=== PATIENT | female | born 1980 | race American Indian/Alaskan Native ===

== ENCOUNTER 2017-01-04 03:00 | Emergency (ER) | payer MEDICAID ==
[2017-01-04 03:22] VITALS: BP 138/84
[2017-01-04 03:50] LABS: Basophils % (Auto) 0.4 % (0.0-1.8); Eosinophils % (Auto) 1.1 % (0.0-4.3); Hematocrit 34.1 % (30.3-42.9); Hemoglobin 11.2 gm/dl (10.1-14.3); Mean Corpuscular HGB Conc 33 % (30-34); Mean Corpuscular Volume 74 fl (79-97); Platelet Count 270 K/mm3 (140-440); Red Blood Count 4.61 M/mm3 (3.65-5.03); Red Cell Distribution Width 16.4 % (13.2-15.2); White Blood Count 4.8 K/mm3 (4.5-11.0)
[2017-01-04 03:52] LABS: Alanine Aminotransferase 7 units/L (7-56); Albumin 3.7 g/dL (3.9-5); Alkaline Phosphatase 55 units/L (35-129); Anion Gap 18 mmol/L; Blood Urea Nitrogen 6 mg/dL (7-17); Carbon Dioxide 25 mmol/L (22-30); Chloride 100.5 mmol/L (98-107); Glucose 88 mg/dL (65-100); Lipase 26 units/L (13-60); Potassium 3.2 mmol/L (3.6-5.0); Sodium 140 mmol/L (137-145); Total Protein 7.5 g/dL (6.3-8.2)
[2017-01-04 03:54] LABS: Mean Corpuscular Hemoglobin 24 pg (28-32)
[2017-01-04 04:00] LABS: INR 1.02 (0.87-1.13)
[2017-01-04 04:01] LABS: Partial Thromboplastin Time 30.5 Sec. (24.2-36.6)
[2017-01-04 05:08] LABS: Bilirubin,Urine NEG (Negative); Blood,Urine SM (Negative); Ketones,Urine TR mg/dL (Negative); Leukocyte Esterase,Urine NEG (Negative); Mucus,Urine FEW /HPF; Nitrite,Urine NEG (Negative)
== END 2017-01-04 05:41 | disposition left against medical advice (07) ==
LOC: ED 03:00
DX: K21.9 Gastro-esophageal reflux disease without esophagitis (principal); Z53.21 Procedure and treatment not carried out due to patient leaving prior to being seen by health care provider
CPT/HCPCS: 36415; 80053; 81001; 83690; 84484; 85025; 85610; 85730; 93005; 93010

== ENCOUNTER 2017-01-13 22:37 | Emergency (ER) | payer MEDICAID ==
[2017-01-14 00:58] LABS: Basophils % (Auto) 0.5 % (0.0-1.8); Eosinophils % (Auto) 1.5 % (0.0-4.3); Hematocrit 36.7 % (30.3-42.9); Hemoglobin 11.7 gm/dl (10.1-14.3); Mean Corpuscular HGB Conc 32 % (30-34); Mean Corpuscular Volume 75 fl (79-97); Platelet Count 243 K/mm3 (140-440); Red Blood Count 4.89 M/mm3 (3.65-5.03); Red Cell Distribution Width 16.3 % (13.2-15.2); White Blood Count 5.1 K/mm3 (4.5-11.0)
[2017-01-14 00:59] LABS: Mean Corpuscular Hemoglobin 24 pg (28-32)
[2017-01-14 01:13] LABS: Anion Gap 21 mmol/L; Blood Urea Nitrogen 9 mg/dL (7-17); Calcium 9.2 mg/dL (8.4-10.2); Carbon Dioxide 23 mmol/L (22-30); Chloride 100.8 mmol/L (98-107); Glucose 83 mg/dL (65-100); Potassium 3.5 mmol/L (3.6-5.0); Sodium 141 mmol/L (137-145)
[2017-01-14 02:31] LABS: Bilirubin,Urine NEG (Negative); Blood,Urine SM (Negative); Ketones,Urine 80 mg/dL (Negative); Leukocyte Esterase,Urine NEG (Negative); Mucus,Urine 3+ /HPF; Nitrite,Urine NEG (Negative)
[2017-01-14] MEDS ORDERED: NACL 0.9% 1000 ML 1,000 ML IV ONE ×2 (06:15→06:16)
[2017-01-14] MEDS ORDERED: LIDOCAINE VISCOUS 2% PO ONE (06:16)
[2017-01-14] MEDS ORDERED: ALUM-MAG HYDROX-SIMETH 200-200-20MG/5ML PO ONE (06:16)
--- NOTE | 2017-01-14 06:21 | Emergency Department Report ---
HPI - General Chief Complaint: Nausea/Vomiting/Diarrhea Time Seen by Provider: 01/14/17 06:02 - HPI HPI: This is a 37 year-old female presents to the emergency department with complaint of inability to eat and drink for the past 3 weeks or so. The patient has a history of acid reflux and ulcers and was placed on Nexium by her PCP, Dr. Del Rosario. This particular first but she felt that the Nexium was causing anxiety problems. She then switched Pepcid which helped at first but the patient develops a fullness sensation in her abdomen upon eating or drinking, even small amounts, and sometimes patient will have nausea and vomiting. It is gone to the point where the patient is very anxious about eating or drinking because she does not want to have the fullness sensation or any abdominal discomfort. Sometimes she is able to keep down a very small amount of liquid. She has not seen a singer songwriter. She has a history of anxiety that worsened with these medications. She has a past surgical history of tubal ligation and . No recent travel or sick contacts at home. She is a smoker but denies any alcohol or illicit drug use or abuse. ED Past Medical Hx - Past Medical History Hx GERD: Yes Hx Psychiatric Treatment: Yes (anxiety) - Surgical History Past Surgical History?: Yes Additional Surgical History: tubal ligation, - Social History Smoking Status: Current Every Day Smoker Substance Use Type: None - Medications Home Medications: Home Medications Medication Instructions Recorded Confirmed Last Taken Type Acetaminophen/Codeine 1 tab PO Q8H PRN 01/24/16 01/24/16 01/23/16 History [Acetaminophen-Codeine #3 TAB] Acetaminophen/Codeine [Tylenol #3] 1 tab PO Q6H PRN #10 tab 01/24/16 Unknown Rx Amoxicillin [Trimox] 500 mg PO TID 01/24/16 01/24/16 01/23/16 History Ibuprofen [Motrin 800 MG tab] 800 mg PO BID 01/24/16 01/24/16 01/23/16 History Ondansetron [Zofran TAB] 4 mg PO Q8HR PRN #10 tablet 01/24/16 Unknown Rx ED Review of Systems ROS: Stated complaint: DEHYDRATION/ ACID REFLUX Other details as noted in HPI Comment: All other systems reviewed and negative Constitutional: denies: chills, fever Eyes: denies: eye pain, eye discharge, vision change ENT: denies: ear pain, throat pain Respiratory: denies: cough, shortness of breath, wheezing Cardiovascular: denies: chest pain, palpitations Gastrointestinal: abdominal pain, nausea, vomiting Genitourinary: denies: urgency, dysuria, discharge Musculoskeletal: denies: back pain, joint swelling, arthralgia Skin: denies: rash, lesions Neurological: denies: headache, weakness, paresthesias Physical Exam - Physical Exam Vital Signs: Vital Signs 01/14/17 01/14/17 00:26 03:23 Temperature 98.5 F Pulse Rate 56 L 56 L Respiratory 18 18 Rate Blood Pressure 118/83 Blood Pressure 118/83 112/57 [Right] O2 Sat by Pulse 100 99 Oximetry Physical Exam: GENERAL: The patient is well-developed well-nourished. HENT: Normocephalic. Atraumatic. Patient has moist mucous membranes. EYES: Extraocular motions are intact. Pupils equal reactive to light bilaterally. NECK: Supple. Trachea is midline. CHEST/LUNGS: Clear to auscultation. There is no respiratory distress noted. HEART/CARDIOVASCULAR: Regular. There is no tachycardia. There is no gallop rub or murmur. ABDOMEN: Abdomen is soft, nontender. Patient has normal bowel sounds. There is no abdominal distention. Obese habitus. SKIN: There is no rash. There is no edema. There is no diaphoresis. NEURO: The patient is awake, alert, and oriented. The patient is cooperative. The patient has no focal neurologic deficits. The patient has normal speech. MUSCULOSKELETAL: There is no tenderness or deformity. There is no limitation range of motion. There is no evidence of acute injury. ED Course Vital Signs 01/14/17 01/14/17 00:26 03:23 Temperature 98.5 F Pulse Rate 56 L 56 L Respiratory 18 18 Rate Blood Pressure 118/83 Blood Pressure 118/83 112/57 [Right] O2 Sat by Pulse 100 99 Oximetry ED Medical Decision Making - Lab Data Result diagrams: 01/14/17 00:37 01/14/17 00:37 - Radiology Data Radiology results: image reviewed interpreted by me: Abdominal x-ray shows nonspecific nonobstructive bowel gas. - Medical Decision Making 37-year-old female presents with a few weeks of early satiety and problems with eating/drinking which has caused some dehydration. Labs are mostly unremarkable except for 80 ketones in the urine showing dehydration. Abdominal x-ray was done that shows nonspecific nonobstructive bowel gas but otherwise no acute process seen. Vital signs stable throughout her ED course. She was given 2 L of IV fluid resuscitation and a GI cocktail including Maalox and lidocaine. Upon reevaluation the patient says she is feeling much better, was able to keep down the GI cocktail and some fluid without any further nausea or vomiting and has displayed the ability to rehydrate herself orally. I spoke to the patient in great detail about the need for a gastroenterology follow-up for probable EGD to rule out esophagitis, malignancy and other etiology of her symptoms. She will go home and increase oral rehydration. She will follow-up with her primary care physician. She will return to the ER for any worsening of her symptoms or any acute distress. - Differential Diagnosis gastritis, esophagitis, malignancy, gastroenteritis Critical Care Time: No Critical care attestation.: If time is entered above; I have spent that time in minutes in the direct care of this critically ill patient, excluding procedure time. ED Disposition Clinical Impression: Early satiety, Dehydration GERD (gastroesophageal reflux disease) Qualifiers: Esophagitis presence: esophagitis presence not specified Qualified Code(s): K21.9 - Gastro-esophageal reflux disease without esophagitis Disposition: TO HOME OR SELFCARE Is pt being admited?: No Condition: Stable Instructions: Dehydration (ED), Gastroesophageal Reflux Disease (ED), Acute Nausea and Vomiting (ED), Abdominal Pain (ED) Additional Instructions: Please follow-up with your primary care physician in the next 2 days. I have given you a referral for a local singer songwriter, Dr. Javed, part of [facility]. I recommend that he follow-up with a singer songwriter regarding your problems with eating/drinking, acid reflux, and your early satiety. Return to the emergency department with a worsening of her symptoms, inability to stay hydrated, or any acute distress. Continue with your Pepcid. Try to stay away from foods that are spicy, acidic, tomato-based and try not to drink any alcohol or smoke any cigarettes. Referrals: PRIMARY CARE, [Primary Care Provider] - 3-5 Days OSMANY JAVED MD [Staff Physician] - 3-5 Days Time of Disposition: 09:10
--- NOTE | 2017-01-14 08:31 | XRay Report ---
FINAL REPORT EXAM: XR ABDOMEN 2V HISTORY: Abd pain TECHNIQUE: upright and supine views of the abdomen and pelvis PRIORS: None. FINDINGS: No pneumoperitoneum. Bowel gas pattern is nonobstructive. No pathologic calcification or fracture. IMPRESSION: No acute finding.
[2017-01-14 09:25] VITALS: BP 103/50
== END 2017-01-14 09:28 | disposition home or self-care (01) ==
LOC: ED 22:37
DX: K21.9 Gastro-esophageal reflux disease without esophagitis (principal); E86.0 Dehydration; R68.81 Early satiety; F41.9 Anxiety disorder, unspecified; F17.200 Nicotine dependence, unspecified, uncomplicated
CPT/HCPCS: 36415; 74020; 80048; 81001; 85025; 96360; 99284; J7030

== ENCOUNTER 2017-04-09 17:59 | Emergency (ER) | payer MEDICAID ==
[2017-04-09 18:24] VITALS: BP 125/70
[2017-04-10] MEDS ORDERED: MOTRIN PO ONE (01:19)
[2017-04-10] MEDS ORDERED: BOOSTRIX IM ONE (01:24)
--- NOTE | 2017-04-10 01:27 | Emergency Department Report ---
ED Extremity Problem HPI - General Chief complaint: Extremity Injury, Lower Stated complaint: LEG PAIN Time Seen by Provider: 04/10/17 01:09 Source: patient Mode of arrival: Ambulatory Limitations: No Limitations - History of Present Illness Initial comments: 37-year-old female past medical history obesity,GERD, anxiety presents with complaint of left lower leg and left foot pain status post accident at home. Patient states she was walking in her home and the floor suddenly gave way and her foot went through a hole in the floor. Patient states that she was able to pull her leg out of the hole. Called EMS and EMS brought her to the hospital. Denies any loss of consciousness denies injuries to any other body parts or any significant falls other than her leg falling through hole in the floor in her home. Patient is awake alert and oriented 3 does not appear to be in acute distress. States that her primary pain is in the left ankle. Denies chest pain palpitations shortness of breath abdominal pain nausea and dizziness headache blurry vision. States she has some abrasions to her left lower extremity near calf and some bruising near cath. Patient is ambulatory but states that most of the pain is in her left ankle as she walks. Patient can take more than 10 steps unassisted. MD Complaint: extremity pain -: This evening Location: left, lower extremity (left ankle) Severity scale (0 -10): 6 Quality: aching Consistency: intermittent Improves with: cold therapy, immobilization, elevation Worsens with: weight bearing Associated Symptoms: denies other symptoms - Related Data Home Medications Medication Instructions Recorded Confirmed Last Taken Acetaminophen/Codeine 1 tab PO Q8H PRN 01/24/16 01/24/16 01/23/16 [Acetaminophen-Codeine #3 TAB] Amoxicillin [Trimox] 500 mg PO TID 01/24/16 01/24/16 01/23/16 Ibuprofen [Motrin 800 MG tab] 800 mg PO BID 01/24/16 01/24/16 01/23/16 Previous Rx's Medication Instructions Recorded Last Taken Type Acetaminophen/Codeine [Tylenol #3] 1 tab PO Q6H PRN #10 tab 01/24/16 Unknown Rx Ondansetron [Zofran TAB] 4 mg PO Q8HR PRN #10 tablet 01/24/16 Unknown Rx Bacitracin Zinc Oint [Antibiotic 1 applicatio TP BID #1 tube 04/10/17 Unknown Rx Oint] Ibuprofen [Motrin] 800 mg PO Q8HR PRN #30 tablet 04/10/17 Unknown Rx Allergies Allergy/AdvReac Type Severity Reaction Status Date / Time No Known Allergies Allergy Unverified 01/23/16 17:19 ED Review of Systems ROS: Stated complaint: LEG PAIN Other details as noted in HPI Constitutional: denies: chills, fever Eyes: denies: eye pain, eye discharge, vision change ENT: denies: ear pain, throat pain Respiratory: denies: cough, shortness of breath, wheezing Cardiovascular: denies: chest pain, palpitations Endocrine: no symptoms reported Gastrointestinal: denies: abdominal pain, nausea, diarrhea Genitourinary: denies: urgency, dysuria, discharge Musculoskeletal: denies: back pain, joint swelling, arthralgia Skin: denies: rash, lesions Neurological: denies: headache, weakness, paresthesias Psychiatric: denies: anxiety, depression Hematological/Lymphatic: denies: easy bleeding, easy bruising ED Past Medical Hx - Past Medical History Previous Medical History?: Yes Hx GERD: Yes Hx Psychiatric Treatment: Yes (anxiety) - Surgical History Past Surgical History?: Yes Additional Surgical History: tubal ligation, - Social History Smoking Status: Never Smoker Substance Use Type: None - Medications Home Medications: Home Medications Medication Instructions Recorded Confirmed Last Taken Type Acetaminophen/Codeine 1 tab PO Q8H PRN 01/24/16 01/24/16 01/23/16 History [Acetaminophen-Codeine #3 TAB] Acetaminophen/Codeine [Tylenol #3] 1 tab PO Q6H PRN #10 tab 01/24/16 Unknown Rx Amoxicillin [Trimox] 500 mg PO TID 01/24/16 01/24/16 01/23/16 History Ibuprofen [Motrin 800 MG tab] 800 mg PO BID 01/24/16 01/24/16 01/23/16 History Ondansetron [Zofran TAB] 4 mg PO Q8HR PRN #10 tablet 01/24/16 Unknown Rx Bacitracin Zinc Oint [Antibiotic 1 applicatio TP BID #1 tube 04/10/17 Unknown Rx Oint] Ibuprofen [Motrin] 800 mg PO Q8HR PRN #30 tablet 04/10/17 Unknown Rx ED Physical Exam - General Limitations: No Limitations General appearance: alert, in no apparent distress - Head Head exam: Present: atraumatic, normocephalic - Eye Eye exam: Present: normal appearance, PERRL, EOMI - ENT ENT exam: Present: mucous membranes moist - Neck Neck exam: Present: normal inspection - Respiratory Respiratory exam: Present: normal lung sounds bilaterally. Absent: respiratory distress - Cardiovascular Cardiovascular Exam: Present: regular rate, normal rhythm. Absent: systolic murmur, diastolic murmur, rubs, gallop - GI/Abdominal GI/Abdominal exam: Present: soft, normal bowel sounds - Extremities Exam Extremities exam: Present: normal inspection - Expanded Lower Extremity Exam Left Hip exam: Present: normal inspection, full ROM (abduction, aduction, internal and external rotation intact) Upper Leg exam: Present: normal inspection, full ROM Knee exam: Present: normal inspection, full ROM Lower Leg exam: Present: ecchymosis (brusing left calf, 1-2 abrasions) Ankle exam: Present: normal inspection, full ROM (dorsi and plantarflexion intact left ankle) Foot/Toe exam: Present: normal inspection Neuro vascular tendon exam: Present: no vascular compromise (DP and PT pulses intact on exam) Gait: Positive: observed and normal 1 - brsusie here, abrasiosn here - Back Exam Back exam: Present: normal inspection - Neurological Exam Neurological exam: Present: alert, oriented X3, CN II-XII intact, normal gait - Psychiatric Psychiatric exam: Present: normal affect, normal mood - Skin Skin exam: Present: warm, dry, intact, normal color. Absent: rash ED Course Vital Signs 04/09/17 18:21 Temperature 98.8 F Pulse Rate 89 Respiratory 16 Rate Blood Pressure 125/70 O2 Sat by Pulse 100 Oximetry ED Medical Decision Making - Medical Decision Making A/P: Left lower extremity pain, abrasions 1- xrays show no fractures. Patient states that walking is uncomfortable we'll provide crutches and air stirrup splint 2- tetanus updated tonight, triple abx ointment 3- pt ambulatory without assistance, minimal pain, marycruz wrap, RICE therapy 4- f/u with PMD and orthopedics Critical care attestation.: If time is entered above; I have spent that time in minutes in the direct care of this critically ill patient, excluding procedure time. ED Disposition Clinical Impression: Slipping, tripping and stumbling without falling due to stepping into hole or opening, sequela, Abrasions of multiple sites Ankle pain, left Qualifiers: Chronicity: acute Qualified Code(s): M25.572 - Pain in left ankle and joints of left foot Left ankle sprain Qualifiers: Encounter type: initial encounter Involved ligament of ankle: unspecified ligament Qualified Code(s): S93.402A - Sprain of unspecified ligament of left ankle, initial encounter Disposition: TO HOME OR SELFCARE Is pt being admited?: No Does the pt Need Aspirin: No Condition: Stable Instructions: Contusion in Adults (ED), Foot Contusion (ED), Abrasion (ED), Musculoskeletal Pain (ED), Ankle Sprain (ED), Ankle Stirrup Splint (ED) Prescriptions: Bacitracin Zinc Oint [Antibiotic Oint] 1 applicatio TP BID #1 tube Ibuprofen [Motrin] 800 mg PO Q8HR PRN #30 tablet PRN Reason: Pain Referrals: [facility] [Outside] - 3-5 Days [facility] [Outside] - 3-5 Days SHELDON LOPEZ MD [Staff Physician] - 3-[address] [facility] [Provider Group] - 3-5 Days Time of Disposition: 01:30
--- NOTE | 2017-04-10 11:24 | XRay Report ---
FINAL REPORT EXAM: XR FOOT 2V LT HISTORY: s/p foot falling thru floor TECHNIQUE: Two views of the left foot were submitted. FINDINGS: There is no evidence of acute fracture or soft tissue injury. There is spurring along the posterior and plantar margin of the calcaneus. Soft tissues are unremarkable. IMPRESSION: Calcaneal spurs. No acute injury.
--- NOTE | 2017-04-10 11:24 | XRay Report ---
FINAL REPORT EXAM: XR TIBIA FIBULA 2V LT HISTORY: s/p foot falling thru floor guero fpain TECHNIQUE: Four views of the left tibia-fibula were obtained. FINDINGS: There is no evidence of fracture or soft tissue injury. The knee an ankle joints do not show any acute changes. IMPRESSION: No acute fracture or soft tissue injury.
--- NOTE | 2017-04-10 17:50 | XRay Report ---
FINAL REPORT EXAM: XR ANKLE 3+V LT HISTORY: left ankle injury; pain TECHNIQUE: Three views left ankle PRIORS: None. FINDINGS: No fracture is identified. No dislocation seen. Ankle mortise is intact no evidence of joint space widening. No erosive or degenerative changes are identified. No evidence of joint effusion. Small plantar calcaneal enthesophyte is noted IMPRESSION: Heel spur No acute abnormality identified
== END 2017-04-10 02:10 | disposition home or self-care (01) ==
LOC: ED 17:59
DX: S93.402A Sprain of unspecified ligament of left ankle, initial encounter (principal); K21.9 Gastro-esophageal reflux disease without esophagitis; F41.9 Anxiety disorder, unspecified; Z88.0 Allergy status to penicillin; W01.0XXA Fall on same level from slipping, tripping and stumbling without subsequent striking against object, initial encounter; Y93.89 Activity, other specified; Y92.89 Other specified places as the place of occurrence of the external cause; Y99.8 Other external cause status
CPT/HCPCS: 90471; 90715

== ENCOUNTER 2019-04-07 14:45 | Emergency (ER) | payer SELFPAY ==
[2019-04-07 15:25] VITALS: BP 129/77
--- NOTE | 2019-04-07 15:28 | Emergency Department Report ---
- General Chief Complaint: Upper Respiratory Infection Stated Complaint: FLU LIKE SYM/COUGH Time Seen by Provider: 04/07/19 15:23 Source: patient Mode of arrival: Ambulatory Limitations: No Limitations - History of Present Illness Initial Comments: pt is a 39 yo female who presents to the ED with c/o flu like symptoms that began yesterday. she states she has associated congestion, body aches, subjective fever, dry cough, nausea. she does not report any CP, SOB, vomiting, diarrhea, abdominal pain. no PMHx. no allergies to meds. LNMP 04/01/19. states she has had a sick contact. - Related Data Home Medications Medication Instructions Recorded Confirmed Last Taken Amoxicillin [Trimox] 500 mg PO TID 01/24/16 01/24/16 01/23/16 Previous Rx's Medication Instructions Recorded Last Taken Type Acetaminophen/Codeine [Tylenol #3] 1 tab PO Q6H PRN #10 tab 01/24/16 Unknown Rx Ondansetron [Zofran TAB] 4 mg PO Q8HR PRN #10 tablet 01/24/16 Unknown Rx Bacitracin Zinc Oint [Antibiotic 1 applicatio TP BID #1 tube 04/10/17 Unknown Rx Oint] Ibuprofen [Motrin] 800 mg PO Q8HR PRN #30 tablet 04/10/17 Unknown Rx Acetaminophen/Codeine [Tylenol 1 tab PO Q6H PRN #14 tablet 11/02/17 Unknown Rx /Codeine # 3 tab] Ibuprofen [Motrin 800 MG tab] 800 mg PO Q8H PRN #21 tablet 11/02/17 Unknown Rx Penicillin V Potassium 500 mg PO Q8H 10 Days #30 tablet 11/02/17 Unknown Rx Oseltamivir [Tamiflu] 75 mg PO BID 5 Days #10 cap 04/07/19 Unknown Rx Allergies Allergy/AdvReac Type Severity Reaction Status Date / Time No Known Allergies Allergy Verified 04/07/19 14:47 ED Review of Systems ROS: Stated complaint: FLU LIKE SYM/COUGH Other details as noted in HPI ED Past Medical Hx - Past Medical History Hx GERD: Yes Hx Psychiatric Treatment: Yes (anxiety) - Surgical History Additional Surgical History: tubal ligation, - Social History Smoking Status: Current Every Day Smoker Substance Use Type: None - Medications Home Medications: Home Medications Medication Instructions Recorded Confirmed Last Taken Type Acetaminophen/Codeine [Tylenol #3] 1 tab PO Q6H PRN #10 tab 01/24/16 Unknown Rx Amoxicillin [Trimox] 500 mg PO TID 01/24/16 01/24/16 01/23/16 History Ondansetron [Zofran TAB] 4 mg PO Q8HR PRN #10 tablet 01/24/16 Unknown Rx Bacitracin Zinc Oint [Antibiotic 1 applicatio TP BID #1 tube 04/10/17 Unknown Rx Oint] Ibuprofen [Motrin] 800 mg PO Q8HR PRN #30 tablet 04/10/17 Unknown Rx Acetaminophen/Codeine [Tylenol 1 tab PO Q6H PRN #14 tablet 11/02/17 Unknown Rx /Codeine # 3 tab] Ibuprofen [Motrin 800 MG tab] 800 mg PO Q8H PRN #21 tablet 11/02/17 Unknown Rx Penicillin V Potassium 500 mg PO Q8H 10 Days #30 tablet 11/02/17 Unknown Rx Oseltamivir [Tamiflu] 75 mg PO BID 5 Days #10 cap 04/07/19 Unknown Rx ED Physical Exam - General Limitations: No Limitations General appearance: alert, in no apparent distress - Head Head exam: Present: atraumatic, normocephalic - Eye Eye exam: Present: normal appearance - ENT ENT exam: Present: normal orophraynx, mucous membranes moist, other (bilateral cerumen impactions, clear nasal drainage bilateral nares ) - Respiratory Respiratory exam: Present: normal lung sounds bilaterally. Absent: respiratory distress, wheezes, rales, rhonchi, stridor, chest wall tenderness, accessory muscle use, decreased breath sounds, prolonged expiratory - Cardiovascular Cardiovascular Exam: Present: regular rate, normal rhythm, normal heart sounds. Absent: systolic murmur, diastolic murmur, rubs, gallop - Neurological Exam Neurological exam: Present: alert, oriented X3 - Psychiatric Psychiatric exam: Present: normal affect, normal mood - Skin Skin exam: Present: warm, dry, intact ED Course Vital Signs 04/07/19 15:23 Temperature 98.1 F Pulse Rate 87 Respiratory 18 Rate Blood Pressure 129/77 [Right] O2 Sat by Pulse 96 Oximetry ED Medical Decision Making - Medical Decision Making pt is a 39 yo female who presents to the ED with c/o flu like symptoms that began yesterday. she states she has associated congestion, body aches, subjective fever, dry cough, nausea. she does not report any CP, SOB, vomiting, diarrhea, abdominal pain. no PMHx. no allergies to meds. LNMP 04/01/19. states she has had a sick contact. VSS. on exam: bilateral cerumen impactions, clear nasal drainage bilateral nares, lungs are clear bilaterally without w/r/r. given prescription for tamiflu. advised pt to please take medication as prescribed. increase your fluid intake over the next several days. may use a humidifier, warm salt water gargles, eat warm soup broth, drink warm tea. may take over the counter medications for symptomatic relief. follow up with a primary care doctor in the next 2-3 days. may use debrox ear cleaning kit over the coutner for ear wax removal. see your primary care doctor for ear recheck. return to the emergency room for any new or worsening symptoms. - Differential Diagnosis URI, PNA, viral syndrome, otitis media, sinusitis, pharyngitis, influenza Critical care attestation.: If time is entered above; I have spent that time in minutes in the direct care of this critically ill patient, excluding procedure time. ED Disposition Clinical Impression: Influenza Cerumen impaction Qualifiers: Laterality: bilateral Qualified Code(s): H61.23 - Impacted cerumen, bilateral Disposition: TO HOME OR SELFCARE Is pt being admited?: No Does the pt Need Aspirin: No Condition: Stable Instructions: Cerumen Impaction (ED), Influenza (ED) Additional Instructions: please take medication as prescribed. increase your fluid intake over the next several days. may use a humidifier, warm salt water gargles, eat warm soup broth, drink warm tea. may take over the counter medications for symptomatic relief. follow up with a primary care doctor in the next 2-3 days. may use debrox ear cleaning kit over the coutner for ear wax removal. see your primary care doctor for ear recheck. return to the emergency room for any new or worsening symptoms. Prescriptions: Oseltamivir [Tamiflu] 75 mg PO BID 5 Days #10 cap Referrals: [facility] [Provider Group] - 2-3 Days Forms: Work/School Release Form(ED) Time of Disposition: 15:46 Print Language: KINYARWAN[place]
== END 2019-04-07 16:22 | disposition home or self-care (01) ==
LOC: ED 14:45
DX: J11.1 Influenza due to unidentified influenza virus with other respiratory manifestations (principal); H61.20 Impacted cerumen, unspecified ear; F17.200 Nicotine dependence, unspecified, uncomplicated; F41.9 Anxiety disorder, unspecified; K21.9 Gastro-esophageal reflux disease without esophagitis; Z98.51 Tubal ligation status; Z79.899 Other long term (current) drug therapy

== ENCOUNTER 2020-04-10 13:44 | Emergency (ER) | payer BC ==
[2020-04-10 13:54] VITALS: BP 153/67
--- NOTE | 2020-04-10 15:20 | Emergency Department Report ---
- General Chief Complaint: Upper Respiratory Infection Stated Complaint: FEVER Time Seen by Provider: 04/10/20 15:00 Source: patient Mode of arrival: Ambulatory Limitations: No Limitations - History of Present Illness Initial Comments: This is a 46-year-old female in pleasant in no distress complaining of runny nose productive cough and feverish x2 days. She did not take her temperature at home. she denies nausea vomiting no fever or chills she denies any past medical history. States she is not currently taking any medicines and has not taken anything for her current symptoms MD Complaint: cough, rhinorrhea, nasal congestion, sinus pain - Related Data Home Medications Medication Instructions Recorded Confirmed Last Taken Amoxicillin [Trimox] 500 mg PO TID 01/24/16 01/24/16 01/23/16 Previous Rx's Medication Instructions Recorded Last Taken Type Acetaminophen/Codeine [Tylenol #3] 1 tab PO Q6H PRN #10 tab 01/24/16 Unknown Rx Ondansetron [Zofran TAB] 4 mg PO Q8HR PRN #10 tablet 01/24/16 Unknown Rx Bacitracin Zinc Oint [Antibiotic 1 applicatio TP BID #1 tube 04/10/17 Unknown Rx Oint] Ibuprofen [Motrin] 800 mg PO Q8HR PRN #30 tablet 04/10/17 Unknown Rx Acetaminophen/Codeine [Tylenol 1 tab PO Q6H PRN #14 tablet 11/02/17 Unknown Rx /Codeine # 3 tab] Ibuprofen [Motrin 800 MG tab] 800 mg PO Q8H PRN #21 tablet 11/02/17 Unknown Rx Penicillin V Potassium 500 mg PO Q8H 10 Days #30 tablet 11/02/17 Unknown Rx Oseltamivir [Tamiflu] 75 mg PO BID 5 Days #10 cap 04/07/19 Unknown Rx Amoxicillin [Amoxicillin TAB] 875 mg PO Q12H 10 Days #20 tablet 04/10/20 Unknown Rx Allergies Allergy/AdvReac Type Severity Reaction Status Date / Time No Known Allergies Allergy Verified 04/07/19 14:47 ED Review of Systems ROS: Stated complaint: FEVER Other details as noted in HPI ED Past Medical Hx - Past Medical History Hx GERD: Yes Hx Psychiatric Treatment: Yes (anxiety) - Surgical History Additional Surgical History: tubal ligation, - Social History Smoking Status: Current Every Day Smoker Substance Use Type: None - Medications Home Medications: Home Medications Medication Instructions Recorded Confirmed Last Taken Type Acetaminophen/Codeine [Tylenol #3] 1 tab PO Q6H PRN #10 tab 01/24/16 Unknown Rx Amoxicillin [Trimox] 500 mg PO TID 01/24/16 01/24/16 01/23/16 History Ondansetron [Zofran TAB] 4 mg PO Q8HR PRN #10 tablet 01/24/16 Unknown Rx Bacitracin Zinc Oint [Antibiotic 1 applicatio TP BID #1 tube 04/10/17 Unknown Rx Oint] Ibuprofen [Motrin] 800 mg PO Q8HR PRN #30 tablet 04/10/17 Unknown Rx Acetaminophen/Codeine [Tylenol 1 tab PO Q6H PRN #14 tablet 11/02/17 Unknown Rx /Codeine # 3 tab] Ibuprofen [Motrin 800 MG tab] 800 mg PO Q8H PRN #21 tablet 11/02/17 Unknown Rx Penicillin V Potassium 500 mg PO Q8H 10 Days #30 tablet 11/02/17 Unknown Rx Oseltamivir [Tamiflu] 75 mg PO BID 5 Days #10 cap 04/07/19 Unknown Rx Amoxicillin [Amoxicillin TAB] 875 mg PO Q12H 10 Days #20 tablet 04/10/20 Unknown Rx ED Physical Exam - General Limitations: No Limitations ED Course Vital Signs 04/10/20 13:51 Temperature 98.0 F Pulse Rate 89 Respiratory 18 Rate Blood Pressure 153/67 O2 Sat by Pulse 94 Oximetry ED Medical Decision Making - Medical Decision Making 40-year-old female with URI symptoms nasal congestion maxillary sinus tenderness plans to treat her home - Differential Diagnosis Sinusitis viral illness upper respiratory infection Critical care attestation.: If time is entered above; I have spent that time in minutes in the direct care of this critically ill patient, excluding procedure time. ED Disposition Clinical Impression: Maxillary sinusitis Qualifiers: Chronicity: acute Recurrence: non-recurrent Qualified Code(s): J01.00 - Acute maxillary sinusitis, unspecified Disposition: - TO HOME OR SELFCARE Is pt being admited?: No Does the pt Need Aspirin: No Condition: Stable Instructions: Sinusitis, Adult, [id number] Additional Instructions: Rest increase oral hydration drinking at least 6 to 8 glasses of water per day. Take medication as prescribed. Follow-up with your primary care doctor in about 3 to 5 days Prescriptions: Amoxicillin [Amoxicillin TAB] 875 mg PO Q12H 10 Days #20 tablet Referrals: PRIMARY CARE,MD [Primary Care Provider] - 3-5 Days Forms: Work/School Release Form(ED) Time of Disposition: 15:23
== END 2020-04-10 15:36 | disposition home or self-care (01) ==
LOC: ED 13:44
DX: J32.0 Chronic maxillary sinusitis (principal); K21.9 Gastro-esophageal reflux disease without esophagitis; F41.9 Anxiety disorder, unspecified; F17.200 Nicotine dependence, unspecified, uncomplicated; Z98.890 Other specified postprocedural states; Z98.51 Tubal ligation status; Z79.1 Long term (current) use of non-steroidal anti-inflammatories (NSAID); Z79.2 Long term (current) use of antibiotics; Z79.899 Other long term (current) drug therapy
CPT/HCPCS: 99281

== ENCOUNTER 2020-04-21 14:08 | Inpatient (IN) | payer BC ==
--- NOTE | 2020-04-21 14:32 | Event Note ---
ED Screening Note ED Screening Note: diagnosed with PNA a week ago at [facility] at urgent care, states she had an XR +diarrhea +cough +SOB +CP +lightheaded +sore throat states her symptoms began 04/07/2020 states she got a COVID 19 test on 04/13/2020 and reports it was negative no sick contacts no recent travel no recent surgery no hormone use no leg swelling PMHx none no allergies to meds +smoker non ETOH This initial assessment/diagnostic orders/clinical plan/treatment(s) is/are subject to change based on patients health status, clinical progression and re- assessment by fellow clinical providers in the ED. Further treatment and workup at subsequent clinical providers discretion. Patient/guardian urged not to elope from the ED as their condition may be serious if not clinically assessed and managed. Initial orders include: labs, EKG, CXR
--- NOTE | 2020-04-21 15:27 | XRay Report ---
CHEST 2 VIEWS INDICATION / CLINICAL INFORMATION: SOB, diagnosed with PNA a week ago. COMPARISON: None available. FINDINGS: SUPPORT DEVICES: None. HEART / MEDIASTINUM: No significant abnormality. LUNGS / PLEURA: Mild bibasilar densities. No pneumothorax. ADDITIONAL FINDINGS: No significant additional findings. IMPRESSION: 1. Bibasilar densities which could represent atelectasis although early infiltrate could have a simil ar appearance. Signer Name: Zoila Wiggins MD Signed: 04/21/2020 3:23 PM Workstation Name: [id number]
[2020-04-21 15:35] LABS: Basophils % (Auto) 0.4 % (0.0-1.8); Eosinophils # (Auto) 0.1 K/mm3 (0.0-0.4); Eosinophils % (Auto) 2.4 % (0.0-4.3); Hematocrit 34.8 % (30.3-42.9); Hemoglobin 11.1 gm/dl (10.1-14.3); Lymphocytes # (Auto) 1.4 K/mm3 (1.2-5.4); Mean Corpuscular HGB Conc 32 % (30-34); Mean Corpuscular Volume 73 fl (79-97); Monocytes # (Auto) 0.4 K/mm3 (0.0-0.8); Monocytes % (Auto) 12.2 % (0.0-7.3); Platelet Count 365 K/mm3 (140-440); Red Blood Count 4.79 M/mm3 (3.65-5.03); Red Cell Distribution Width 16.9 % (13.2-15.2)
[2020-04-21 15:50] LABS: Alanine Aminotransferase 38 units/L (7-56); Albumin 3.7 g/dL (3.9-5); Blood Urea Nitrogen 5 mg/dL (7-17); Calcium 9.1 mg/dL (8.4-10.2); Hemolysis Index 0
[2020-04-21 15:52] LABS: BUN/Creatinine Ratio 8
[2020-04-21] MEDS ORDERED: SODIUM CHLORIDE 0.9% 1000 ML IV SOLN IV ONE (16:40)
[2020-04-21] MEDS ORDERED: cefTRIAXone/NS 2 GM/100 ML 2 GM/100 ML BAG IV ONE (16:44)
[2020-04-21] MEDS ORDERED: AZITHROMYCIN 500 MG in SODIUM CHLORIDE 0.9% 250ML 250 ML IV ONE (16:44)
[2020-04-21] MEDS ORDERED: dexAMETHasone 4 MG/ML VIAL IV ONE (16:45)
--- NOTE | 2020-04-21 16:46 | Emergency Department Report ---
ED Chest Pain HPI - General Chief Complaint: Chest Pain Stated Complaint: CHEST PAIN Time Seen by Provider: 04/21/20 16:09 Source: patient Mode of arrival: Ambulatory Limitations: No Limitations - History of Present Illness Initial Comments: Patient is a 40-year-old female that presents emergency room with complaints of chest pain, shortness of breath, difficulty breathing. Patient states that her left chest pain and difficulty breathing and shortness of breath started 3 days ago. Patient states she was diagnosed with sinusitis and pneumonia on April 07, 2020. Patient states her Covid was negative. Patient states she took a round of amoxicillin and then her antibiotic was changed to a Z-Dereje. Patient states that she has been on prednisone taper packs and albuterol. Patient states she was seen at a local urgent care multiple times. Patient states that her symptoms are worsening. Patient states that her chest pain is a 10 out of 10. Patient states the chest pain is in her left chest. Patient states the chest pain is worse with deep breath, exertion and movement. Patient states that the chest pain or shortness of breath are better with rest. Patient states her shortness of breath is worse with exertion. Patient states her fever has resolved. Patient was found to be hypotensive in triage. MD Complaint: chest pain -: Sudden Onset: during rest Pain Location: left chest Pain Radiation: none Severity: severe Severity scale (0 -10): 10 Quality: sharp Consistency: intermittent Improves With: rest Worsens With: exertion, inspiration, palpation, movement re: dyspnea, sense of impending doom. denies: nausea, vomting, diaphoresis Other Symptoms: cough, fever. denies: syncope, rash, acid taste in mouth, leg swelling, palpitations, burping Treatments Prior to Arrival: other Aspirin use within the Past 7 Days: (0) No - Related Data On Oral Contraceptives: No Home Medications Medication Instructions Recorded Confirmed Last Taken No Known Home Medications [No 04/21/20 04/21/20 Unknown Reported Home Medications] Allergies Allergy/AdvReac Type Severity Reaction Status Date / Time No Known Allergies Allergy Verified 04/07/19 14:47 Heart Score - HEART Score History: Slightly suspicious EKG: Normal Age: < 45 Risk factors: 1-2 risk factors Troponin: < normal limit HEART Score: 1 ED Review of Systems ROS: Stated complaint: CHEST PAIN Other details as noted in HPI Constitutional: chills, fever, weakness Eyes: denies: eye pain, eye discharge, vision change ENT: denies: ear pain, throat pain Respiratory: cough, shortness of breath. denies: wheezing Cardiovascular: chest pain. denies: palpitations Endocrine: no symptoms reported Gastrointestinal: denies: abdominal pain, nausea, diarrhea Genitourinary: denies: urgency, dysuria, discharge Musculoskeletal: denies: back pain, joint swelling, arthralgia Skin: denies: rash, lesions Neurological: denies: headache, weakness, paresthesias Psychiatric: denies: anxiety, depression Hematological/Lymphatic: denies: easy bleeding, easy bruising ED Past Medical Hx - Past Medical History Previous Medical History?: Yes Hx GERD: Yes Hx Psychiatric Treatment: Yes (anxiety) - Surgical History Past Surgical History?: Yes Additional Surgical History: tubal ligation, - Family History Family history: no significant - Social History Smoking Status: Current Some Day Smoker Substance Use Type: None - Medications Home Medications: Home Medications Medication Instructions Recorded Confirmed Last Taken Type No Known Home Medications [No 04/21/20 04/21/20 Unknown History Reported Home Medications] ED Physical Exam - General Limitations: No Limitations General appearance: alert, in distress - Head Head exam: Present: atraumatic, normocephalic - Eye Eye exam: Present: normal appearance - ENT ENT exam: Present: mucous membranes moist - Neck Neck exam: Present: normal inspection - Respiratory Respiratory exam: Present: respiratory distress, chest wall tenderness, decreased breath sounds - Cardiovascular Cardiovascular Exam: Present: regular rate, normal rhythm. Absent: systolic murmur, diastolic murmur, rubs, gallop - GI/Abdominal GI/Abdominal exam: Present: soft, normal bowel sounds - Extremities Exam Extremities exam: Present: normal inspection - Back Exam Back exam: Present: normal inspection - Neurological Exam Neurological exam: Present: alert, oriented X3 - Psychiatric Psychiatric exam: Present: normal affect, normal mood - Skin Skin exam: Present: warm, dry, intact, normal color. Absent: rash ED Course Vital Signs 04/21/20 04/21/20 04/21/20 14:21 14:22 15:18 Temperature 97.7 F Pulse Rate 84 77 Respiratory 24 18 Rate Blood Pressure 90/52 [Right] O2 Sat by Pulse 96 95 Oximetry 04/21/20 04/21/20 04/21/20 17:54 17:59 19:43 Temperature Pulse Rate 77 74 Respiratory 25 H Rate Blood Pressure 113/68 [Right] O2 Sat by Pulse 98 99 Oximetry 04/21/20 04/21/20 04/21/20 19:45 20:01 20:15 Temperature Pulse Rate 75 72 71 Respiratory 17 16 17 Rate Blood Pressure [Right] O2 Sat by Pulse 100 100 100 Oximetry 04/21/20 22:00 Temperature Pulse Rate 76 Respiratory 17 Rate Blood Pressure 113/59 [Right] O2 Sat by Pulse 100 Oximetry - Reevaluation(s) Reevaluation #1: Evaluation done. Patient desatted when walking back from triage. Patient also found to be hypoxic. Patient will have a sepsis protocol ordered. 04/21/20 16:09 Reevaluation #2: Patient's blood pressure has improved. Patient's oxygen saturation has improved with treatment. I discussed all results with patient. I discussed plan of care with patient. Patient agrees with plan of care and admission. Patient to be admitted to the hospitalist service. 04/21/20 17:47 - Consultations Consultation #1: Hospitalist consulted for admission. Hospitalist to admit patient. 04/21/20 17:50 LIO score - Lio Score Age > 65: (0) No Aspirin use within the Past 7 Days: (0) No 3 or more CAD Risk Factors: (0) No 2 or more Angina events in past 24 hrs: (0) No Known CAD with more than 50% Stenosis: (0) No Elevated Cardiac Markers: (0) No ST Deviation Greater than 0.5mm: (0) No LIO Score: 0 ED Medical Decision Making - Lab Data Result diagrams: 04/21/20 15:10 04/21/20 18:21 - EKG Data -: EKG Interpreted by Me EKG shows normal: sinus rhythm, axis, intervals, QRS complexes, ST-T waves Rate: normal - Radiology Data Radiology results: report reviewed, image reviewed interpreted by me: Chest x-ray: Bilateral pneumonia, no pneumothorax, no foreign body, no osseous findings, CT ANGIOGRAPHY OF THE CHEST WITH INTRAVENOUS CONTRAST AND MULTIPLANAR MIP RECONSTRUCTIONS INDICATION / CLINICAL INFORMATION: CP, SOB, elevated d-dimer, and hypotensive. TECHNIQUE: Axial CT images were obtained after injection of 100 cc Omnipaque 350 IV contrast using CTA protocol. 3 plane MIP / 3D reconstructions were produced. All CT scans at this location are performed using CT dose reduction for ALARA by means of automated exposure control. COMPARISON: None available. FINDINGS: There is good opacification of the pulmonary arterial system bilaterally without intraluminal filling defect to suggest acute PTE. The thoracic aorta is normal in caliber without dissection. No coronary artery calcification is present. The tracheobronchial tree is normal. There is mild to moderate multifocal patchy parenchymal disease throughout both lungs, more prominent peripherally and in the lower lung zones. Disease is predominantly groundglass in appearance with mild septal thickening. There is no evidence of pleural effusion. No adenopathy is seen. The visualized upper abdomen is normal. No acute osseous abnormality is identified. IMPRESSION: 1. No evidence of acute PTE. 2. Mild to moderate patchy parenchymal opacities bilaterally are likely inflammatory. Atypical causes of pneumonia, including viral pneumonia, should be considered. - Medical Decision Making Patient is a 40-year-old female that presents emergency room with complaints of shortness of breath, chest pain, pneumonia. Patient was found to be hypotensive in triage. Patient ambulated to the patient care room and the nurse informed that the patient desatted. Patient had a sepsis protocol was given the recommended amount of normal saline and her blood pressure improved. Patient also had antibiotics early in her ER stay. Patient had a CT a of the chest to rule out a PE and it was positive for bilateral pneumonia negative for PE. Patient had labs done which were essentially unremarkable. Patient admitted to the hospital service for further evaluation treatment. - Differential Diagnosis Covid, pneumonia, shortness of breath, PE, chest pain, ACS, Critical Care Time: Yes Critical care time in (mins) excluding proc time.: 35 Critical care attestation.: If time is entered above; I have spent that time in minutes in the direct care of this critically ill patient, excluding procedure time. Critical Care Time: 35 minutes ED Disposition Clinical Impression: Person under investigation for COVID-19, SOB (shortness of breath) Sepsis Qualifiers: Sepsis type: sepsis due to unspecified organism Sepsis acute organ dysfunction status: without acute organ dysfunction Qualified Code(s): A41.9 - Sepsis, unspecified organism Respiratory failure Qualifiers: Chronicity: acute Respiratory failure complication: hypoxia Qualified Code(s): J96.01 - Acute respiratory failure with hypoxia Pneumonia Qualifiers: Pneumonia type: due to unspecified organism Laterality: bilateral Lung location: unspecified part of lung Qualified Code(s): J18.9 - Pneumonia, unspecified organism Hypotension Qualifiers: Hypotension type: unspecified hypotension type Qualified Code(s): I95.9 - Hypotension, unspecified Chest pain Qualifiers: Chest pain type: unspecified Qualified Code(s): R07.9 - Chest pain, unspecified Disposition: -09 OP ADMIT IP TO THIS HOSP Is pt being admited?: Yes Does the pt Need Aspirin: No Condition: Critical Time of Disposition: 17:48
--- NOTE | 2020-04-21 17:06 | Cat Scan Report ---
CT ANGIOGRAPHY OF THE CHEST WITH INTRAVENOUS CONTRAST AND MULTIPLANAR MIP RECONSTRUCTIONS INDICATION / CLINICAL INFORMATION: CP, SOB, elevated d-dimer, and hypotensive. TECHNIQUE: Axial CT images were obtained after injection of 100 cc Omnipaque 350 IV contrast using CTA protocol. 3 plane MIP / 3D reconstructions were produced. All CT scans at this location are performed using CT dose reduction for ALARA by means of automated exposure control. COMPARISON: None available. FINDINGS: There is good opacification of the pulmonary arterial system bilaterally without intraluminal filling defect to suggest acute PTE. The thoracic aorta is normal in caliber without dissection. No coronary artery calcification is present. The tracheobronchial tree is normal. There is mild to moderate multifocal patchy parenchymal disease throughout both lungs, more prominent peripherally and in the lower lung zones. Disease is predominan tly groundglass in appearance with mild septal thickening. There is no evidence of pleural effusion. No adenopathy is seen. The visualized upper abdomen is normal. No acute osseous abnormality is identified. IMPRESSION: 1. No evidence of acute PTE. 2. Mild to moderate patchy parenchymal opacities bilaterally are likely inflammatory. Atypical causes of pneumonia, including viral pneumonia, should be considered. Signer Name: Jack Villarreal MD Signed: 04/21/2020 5:01 PM Workstation Name: [id number]
--- NOTE | 2020-04-21 18:01 | History and Physical Report ---
History of Present Illness Chief complaint: I do not feel good and is hard to breathe History of present illness: 40 YO Female with Obesity Hypoventilation Syndrome, GERD, Nicotine Dependence, GREGORY presents to ED for evaluation. Patient states that she has been "feeling sick" over the past 1 week with persistent symptoms over the same timeframe and worsening symptoms over the past 3 days. Patient acknowledges shortness of breath, malaise, fatigue, dry cough, decreased exercise tolerance, as well as chest discomfort. Patient was seen and evaluated and was found to have bronchitis and treated with outpatient therapy without resolution of symptoms. Patient transported to [facility] via private vehicle for further care and evaluation of the aforementioned symptoms. Patient seen and evaluated in the emergency department. Lab and imaging studies reviewed. Upon further interview the patient acknowledges chest wall pain discomfort with deep breathing which is associated with coughing episodes. Patient also acknowledges feeling anxious. Patient knowledges feeling of impending doom. Patient was found to have a pulse oximetry of 88% on room air with exertion which is consistent with acute hypoxemic respiratory failure. A chest x-ray revealed bilateral pneumonia. Patient also found to have systemic inflammatory response syndrome. Patient admitted to medical floor and initiated on pneumonia protocol. Coronavirus protocol initiated in the emergency department. Patient denies fever, chills, palpitations, unilateral leg swelling, calf pain, prolonged travel/immobility, unilateral leg pain, individual/family history of DVT/PE/bleeding/blood clotting disorders, or known exposure to COVID-19. No prior admission for review. All medication listed at time of admission has been reconciled. Past History Past Medical History: GERD, other (See HPI) Past Surgical History: , Other (Tubal ligation) Social history: single, smoking Family history: diabetes, hypertension Medications and Allergies Allergies Allergy/AdvReac Type Severity Reaction Status Date / Time No Known Allergies Allergy Verified 04/07/19 14:47 Home Medications Medication Instructions Recorded Confirmed Last Taken Type No Known Home Medications [No 04/21/20 04/21/20 Unknown History Reported Home Medications] Review of Systems Constitutional: fatigue, weakness, malaise, no weight gain, no chills Ears, nose, mouth and throat: no ear pain, no ear discharge, no tinnitis, no decreased hearing, no nose pain Breasts: no change in shape, no mass Cardiovascular: no chest pain, no palpitations, no rapid/irregular heart beat, no edema Respiratory: cough, no hemoptysis, no dyspnea on exertion Gastrointestinal: no abdominal pain, no nausea, no vomiting, no diarrhea, no constipation Genitourinary Female: no pelvic pain, no flank pain, no dysuria, no urinary frequency, no urgency Rectal: no pain, no incontinence, no bleeding Musculoskeletal: no neck stiffness, no neck pain, no arm numbness/tingling, no shooting leg pain, no leg numbness/tingling Integumentary: no rash, no pruritis, no redness, no sores, no wounds, no jaundice Neurological: no paralysis, no weakness, no parathesias, no numbness, no tingling Psychiatric: anxiety, no memory loss, no change in sleep habits, no sleep disturbances, no hypersomnia, no change in libido Endocrine: no cold intolerance, no heat intolerance, no polyphagia, no excessive thirst, no polydipsia Hematologic/Lymphatic: no easy bruising, no easy bleeding, no lymphadenopathy Allergic/Immunologic: no allergic rhinitis, no persistent infections, no anaphylaxis Exam - Constitutional Vitals: Temp Pulse Resp BP Pulse Ox 97.7 F 74 25 H 113/68 98 04/21/20 14:22 04/21/20 17:59 04/21/20 17:54 04/21/20 17:54 04/21/20 17:54 General appearance: Present: mild distress, obese - EENT Eyes: Present: PERRL ENT: hearing intact, clear oral mucosa - Neck Neck: Present: supple, normal ROM - Respiratory Respiratory effort: normal Respiratory: bilateral: diminished, rhonchi - Cardiovascular Heart Sounds: Present: S1 & S2. Absent: rub, click - Extremities Extremities: pulses symmetrical, No edema Peripheral Pulses: within normal limits - Abdominal General gastrointestinal: Present: soft, non-tender, non-distended, normal bowel sounds Female genitourinary: Present: normal - Integumentary Integumentary: Present: clear, warm, dry - Musculoskeletal Musculoskeletal: gait normal, strength equal bilaterally - Psychiatric Psychiatric: appropriate mood/affect, intact judgment & insight, other (Anxious) - Neurologic Neurologic: CNII-XII intact, moves all extremities HEART Score - HEART Score EKG: Normal Age: < 45 Risk factors: 1-2 risk factors Troponin: Troponin T < 0.010 ng/mL (0.00-0.029) 04/21/20 15:10 Troponin: < normal limit Results - Labs CBC & Chem 7: 04/21/20 15:10 04/21/20 18:21 Labs: Abnormal lab results 04/21/20 04/21/20 04/21/20 Range/Units 15:10 15:10 15:10 WBC 3.5 L (4.5-11.0) K/mm3 MCV 73 L (79-97) fl MCH 23 L (28-32) pg RDW 16.9 H (13.2-15.2) % Lymph % (Auto) 40.0 H (13.4-35.0) % [place] % (Auto) 12.2 H (0.0-7.3) % Seg Neutrophils # 1.6 L (1.8-7.7) K/mm3 D-Dimer 245.33 H (0-234) ng/mlDDU BUN 5 L (7-17) mg/dL Albumin 3.7 L (3.9-5) g/dL Assessment and Plan - Patient Problems (1) Acute hypoxemic respiratory failure Current Visit: Yes Status: Acute Plan to address problem: Supplemental oxygen, chest x-ray, CT chest, pulse oximetry, nebulizer therapy, D-dimer, and noninvasive positive pressure ventilation as clinically indicated. (2) Person under investigation for COVID-19 Current Visit: Yes Status: Acute Plan to address problem: Coronavirus protocol: Contact precaution, isolation precaution, supplemental oxygen, pulse oximetry, prone positioning while in bed, IV antibiotic therapy, IV steroid therapy, supportive care. (3) Pneumonia Current Visit: Yes Status: Acute Plan to address problem: Pneumonia protocol: Chest x-ray, CBC, CMP, CT chest, supplemental oxygen, pulse oximetry, nebulizer therapy, IV antibiotic therapy, blood culture. (4) Obesity hypoventilation syndrome Current Visit: Yes Status: Acute Plan to address problem: Balanced diet, increase physical activity discharge, supplemental oxygen, nebulizer therapy, noninvasive positive pressure ventilation as clinically indicated, outpatient pulmonary follow-up for sleep study. (5) Generalized anxiety disorder Current Visit: Yes Status: Acute Plan to address problem: Benzodiazepine therapy as clinically indicated. (6) DVT prophylaxis Current Visit: Yes Status: Acute Plan to address problem: SCD to bilateral lower extremities while in bed, prophylactic anticoagulation
[2020-04-21] MEDS ORDERED: ALBUTEROL 2.5 MG/3 ML NEBU IH PRN (18:02)
[2020-04-21] MEDS ORDERED: ONDANSETRON 4 MG/2 ML INJ IV PRN (18:02)
[2020-04-21] MEDS ORDERED: ACETAMINOPHEN 325 MG TAB PO PRN (18:02)
[2020-04-21] MEDS ORDERED: ACETAMINOPHEN W/CODEINE 300-30 MG TAB PO PRN ×2 (18:05→18:13)
[2020-04-21 19:02] LABS: C-Reactive Protein 0.7 mg/dL (0.00-1.30)
[2020-04-21] MEDS: methylPREDNISolone Sod Succinate 40 MG/1 ML INJ IV SCH (20:20)
[2020-04-21 20:50] LABS: Bilirubin,Urine NEG (Negative); Blood,Urine NEG (Negative); Color,Urine Straw (Yellow); Protein,Urine <15 mg/dL mg/dL (Negative); Urobilinogen,Urine < 2.0 mg/dL (<2.0); WBC,Urine < 1.0 /HPF (0.0-6.0)
[2020-04-21] MEDS: FAMOTIDINE 10 MG TAB PO SCH (23:17)
[2020-04-21] MEDS: HEPARIN 5,000 UNIT/1 ML VIAL SUB-Q SCH (23:17)
[2020-04-21] MEDS: BACITRACIN ZINC OINT 28.4 GM TP SCH (23:21)
[2020-04-22] MEDS: methylPREDNISolone Sod Succinate 40 MG/1 ML INJ IV SCH ×3 (04:00→22:39)
[2020-04-22] MEDS ORDERED: cefTRIAXone/NS 2 GM/100 ML 2 GM/100 ML BAG IV SCH (10:00)
[2020-04-22] MEDS ORDERED: AZITHROMYCIN 500 MG in SODIUM CHLORIDE 0.9% 250ML 250 ML IV SCH (10:00)
[2020-04-22 10:38] LABS: Basophils % (Auto) 0.1 % (0.0-1.8); Hematocrit 36.8 % (30.3-42.9); Hemoglobin 11.6 gm/dl (10.1-14.3); Lymphocytes # (Auto) 0.8 K/mm3 (1.2-5.4); Lymphocytes % (Auto) 21.7 % (13.4-35.0); Mean Corpuscular HGB Conc 31 % (30-34); Mean Corpuscular Volume 75 fl (79-97); Monocytes # (Auto) 0.1 K/mm3 (0.0-0.8); Monocytes % (Auto) 3.2 % (0.0-7.3); Platelet Count 393 K/mm3 (140-440); Red Blood Count 4.91 M/mm3 (3.65-5.03); Red Cell Distribution Width 16.7 % (13.2-15.2)
[2020-04-22 10:53] LABS: Blood Urea Nitrogen 5 mg/dL (7-17); Calcium 8.3 mg/dL (8.4-10.2); Hemolysis Index 82
[2020-04-22 10:58] LABS: BUN/Creatinine Ratio 10
[2020-04-22] MEDS: HEPARIN 5,000 UNIT/1 ML VIAL SUB-Q SCH ×2 (11:04→22:39)
[2020-04-22] MEDS: FAMOTIDINE 10 MG TAB PO SCH ×2 (12:00→22:38)
--- NOTE | 2020-04-22 13:59 | Progress Note ---
Assessment and Plan -- Acute hypoxemic respiratory failure Current Visit: Yes Status: Acute Plan to address problem: Supplemental oxygen, chest x-ray, CT chest, pulse oximetry, nebulizer therapy, D-dimer, and noninvasive positive pressure ventilation as clinically indicated. -- Person under investigation for COVID-19 Current Visit: Yes Status: Acute Plan to address problem: Coronavirus protocol: Contact precaution, isolation precaution, supplemental oxygen, pulse oximetry, prone positioning while in bed, IV antibiotic therapy, IV steroid therapy, supportive care. -- Pneumonia Current Visit: Yes Status: Acute Plan to address problem: Pneumonia protocol: Chest x-ray, CBC, CMP, CT chest, supplemental oxygen, pulse oximetry, nebulizer therapy, IV antibiotic therapy, blood culture. -- Obesity Current Visit: Yes Status: Acute Plan to address problem: Balanced diet, increase physical activity discharge, supplemental oxygen, nebulizer therapy, noninvasive positive pressure ventilation as clinically indicated, outpatient pulmonary follow-up for sleep study. --Generalized anxiety disorder Current Visit: Yes Status: Acute Plan to address problem: Benzodiazepine therapy as clinically indicated. -- DVT prophylaxis Current Visit: Yes Status: Acute Plan to address problem: SCD to bilateral lower extremities while in bed, prophylactic anticoagulation 04/22: pending covid test result, cont iv abx, follow inflammatory markers, continue steroid Subjective Date of service: 04/22/20 Objective - Labs CBC & Chem 7: 04/22/20 09:18 04/22/20 09:18 Labs: Abnormal lab results 04/21/20 04/21/20 04/21/20 Range/Units 15:10 15:10 15:10 WBC 3.5 L (4.5-11.0) K/mm3 MCV 73 L (79-97) fl MCH 23 L (28-32) pg RDW 16.9 H (13.2-15.2) % Lymph % (Auto) 40.0 H (13.4-35.0) % [place] % (Auto) 12.2 H (0.0-7.3) % Lymph # (Auto) (1.2-5.4) K/mm3 Seg Neutrophils % (40.0-70.0) % Seg Neutrophils # 1.6 L (1.8-7.7) K/mm3 D-Dimer 245.33 H (0-234) ng/mlDDU Chloride (98-107) mmol/L BUN 5 L (7-17) mg/dL Creatinine (0.6-1.2) mg/dL Glucose (65-100) mg/dL Calcium (8.4-10.2) mg/dL Lactate Dehydrogenase (91-180) units/L Albumin 3.7 L (3.9-5) g/dL Ur Specific Gary (1.003-1.030) 04/21/20 04/21/20 04/22/20 Range/Units 18:21 19:50 09:18 WBC 3.8 L (4.5-11.0) K/mm3 MCV 75 L (79-97) fl MCH 24 L (28-32) pg RDW 16.7 H (13.2-15.2) % Lymph % (Auto) (13.4-35.0) % [place] % (Auto) (0.0-7.3) % Lymph # (Auto) 0.8 L (1.2-5.4) K/mm3 Seg Neutrophils % 75.0 H (40.0-70.0) % Seg Neutrophils # (1.8-7.7) K/mm3 D-Dimer (0-234) ng/mlDDU Chloride (98-107) mmol/L BUN (7-17) mg/dL Creatinine (0.6-1.2) mg/dL Glucose (65-100) mg/dL Calcium (8.4-10.2) mg/dL Lactate Dehydrogenase 293 H (91-180) units/L Albumin (3.9-5) g/dL Ur Specific Gary 1.049 H (1.003-1.030) 04/22/20 Range/Units 09:18 WBC (4.5-11.0) K/mm3 MCV (79-97) fl MCH (28-32) pg RDW (13.2-15.2) % Lymph % (Auto) (13.4-35.0) % [place] % (Auto) (0.0-7.3) % Lymph # (Auto) (1.2-5.4) K/mm3 Seg Neutrophils % (40.0-70.0) % Seg Neutrophils # (1.8-7.7) K/mm3 D-Dimer (0-234) ng/mlDDU Chloride 109.1 H (98-107) mmol/L BUN 5 L (7-17) mg/dL Creatinine 0.5 L (0.6-1.2) mg/dL Glucose 113 H (65-100) mg/dL Calcium 8.3 L (8.4-10.2) mg/dL Lactate Dehydrogenase (91-180) units/L Albumin (3.9-5) g/dL Ur Specific Gary (1.003-1.030) HEART Score - HEART Score EKG: Normal Age: < 45 Risk factors: 1-2 risk factors Troponin: Troponin T < 0.010 ng/mL (0.00-0.029) 04/21/20 15:10 Troponin: < normal limit
[2020-04-22] MEDS ORDERED: ALPRAZolam 0.25 MG TAB PO PRN (14:00)
[2020-04-22] MEDS ORDERED: DEXAMETHASONE 4 MG TAB PO SCH (22:00)
[2020-04-23] MEDS: methylPREDNISolone Sod Succinate 40 MG/1 ML INJ IV SCH (04:59)
[2020-04-23] MEDS ORDERED: AZITHROMYCIN 250 MG TAB PO SCH (10:00)
[2020-04-23] MEDS ORDERED: DEXAMETHASONE 4 MG TAB PO SCH (10:00)
--- NOTE | 2020-04-23 10:08 | Consultation ---
History of Present Illness - Reason for Consult Consult date: 04/23/20 COVID Requesting physician: ADELIA VINCENT - History of Present Illness 41 years old female with history of morbid obesity, obesity hypoventilation syndrome, GERD, tobacco abuse, anxiety, admitted on 04/21/2020 secondary to a week history of generalized malaise, fatigue, dry cough, dyspnea on exertion and shortness of breath. Patient was evaluated as an outpatient and found to have bronchitis. Patient was treated with symptomatic medicines without any improvement. Patient reports chest pressure upon deep inspiration and coughing. On arrival, temperature 99.7, HR 84, RR 24, O2 sat 96, BP 90/52. O2 sat dropped to 88% on exertion. Initial WBC 3.5. D-dimer 245. Procalcitonin normal. Ferritin normal. CRP normal. Chest x-ray shows bilateral interstitial infiltrates. CTA of chest shows no pulmonary embolism, mild to moderate patchy bilateral opacities. Patient currently on room air. Review of Systems: reviewed ED and H&P notes. Deferred to prevent COVID-19 transmission. Past History Past Medical History: GERD, other (See HPI) Past Surgical History: , Other (Tubal ligation) Social history: single, smoking Family history: diabetes, hypertension Medications and Allergies Allergies Allergy/AdvReac Type Severity Reaction Status Date / Time No Known Allergies Allergy Verified 04/07/19 14:47 Home Medications Medication Instructions Recorded Confirmed Last Taken Type No Known Home Medications [No 04/21/20 04/21/20 Unknown History Reported Home Medications] Active Meds: Active Medications Acetaminophen (Tylenol) 650 mg PO Q4H PRN PRN Reason: Pain MILD(1-3)/Fever >100.5/DAMON Acetaminophen/Codeine Phosphate (Tylenol #3) 1 tab PO Q6H PRN PRN Reason: Pain, Moderate (4-6) Albuterol (Proventil) 2.5 mg IH Q4HRT PRN PRN Reason: Shortness Of Breath Alprazolam (Alprazolam 0.25 Mg Tab) 0.25 mg PO Q8H PRN PRN Reason: Anxiety Azithromycin (Azithromycin 250 Mg Tab) 500 mg PO QDAY JOSE Stop: 04/24/20 23:59 Bacitracin (Antibiotic Oint) 1 applic TP BID [facility] Last Admin: 04/21/20 23:21 Dose: Not Given Documented by: Dexamethasone (Dexamethasone 4 Mg Tab) 6 mg PO Q12HR [facility] Famotidine (Famotidine 10 Mg Tab) 10 mg PO BID [facility] Last Admin: 04/22/20 22:38 Dose: 10 mg Documented by: Heparin Sodium (Porcine) (Heparin) 5,000 unit SUB-Q Q12HR [facility] Last Admin: 04/22/20 22:39 Dose: 5,000 unit Documented by: Ondansetron HCl (Zofran) 4 mg IV Q8H PRN PRN Reason: Nausea And Vomiting Sodium Chloride (Sodium Chloride Flush Syringe 10 Ml) 10 ml IV BID [facility] Last Admin: 04/22/20 22:40 Dose: 10 ml Documented by: Sodium Chloride (Sodium Chloride Flush Syringe 10 Ml) 10 ml IV PRN PRN PRN Reason: LINE FLUSH Last Admin: 04/23/20 04:59 Dose: 10 ml Documented by: Physical Examination - Physical Exam Narrative exam: Physical Exam: reviewed ED and hospitalist notes. Deferred to prevent COVID-19 transmission. - Constitutional Vitals: Vital Signs Temp Pulse Resp BP Pulse Ox 97.8 F 67 16 121/82 96 04/23/20 04:29 04/23/20 04:29 04/23/20 04:29 04/23/20 04:29 04/23/20 04:29 Temperature -Last 24 Hours Temperature 97.8 F Temperature 97.8 F Temperature 98.5 F Results - Labs CBC & Chem 7: 04/22/20 09:18 04/22/20 09:18 Labs: Abnormal lab results 04/22/20 04/22/20 04/22/20 Range/Units 09:18 09:18 Unknown WBC 3.8 L (4.5-11.0) K/mm3 MCV 75 L (79-97) fl MCH 24 L (28-32) pg RDW 16.7 H (13.2-15.2) % Lymph # (Auto) 0.8 L (1.2-5.4) K/mm3 Seg Neutrophils % 75.0 H (40.0-70.0) % Chloride 109.1 H (98-107) mmol/L BUN 5 L (7-17) mg/dL Creatinine 0.5 L (0.6-1.2) mg/dL Glucose 113 H (65-100) mg/dL Calcium 8.3 L (8.4-10.2) mg/dL Coronavirus (PCR) Positive A (Negative) Assessment and Plan Cultures: Blood culture SARS CoV2 PCR Assessment: 41 years old female with history of morbid obesity BMI 55, obesity hypoventilation syndrome, GERD, tobacco abuse, anxiety, admitted on 04/21/2020 secondary to a week history of generalized malaise, fatigue, dry cough, dyspnea on exertion and shortness of breath: #COVID pneumonia: CTA shows bilateral infiltrates. Inflammatory markers overall normal. #Acute hypoxic upon ambulation: Likely secondary to COVID-19 pneumonia. Patient currently on room air. #Morbid obesity: Associated with poor outcomes. Recommendations: -Obtain 6-minute walking test and document -Continue dexamethasone 6 mg IV/PO twice daily for 5 days followed by 6 mg IV/PO once a day for 5 days -No indication for remdesivir since patient is on room air -Monitor inflammatory markers - ferritin, Ddimer, CRP, LDH -Continue anticoagulation per System Protocol -Prone positioning as possible All laboratory, cultures and imaging were reviewed. Will follow Peggy Gilbert MD Infectious Diseases [employer] [facility] M [phone] O [phone]
[2020-04-23] MEDS ORDERED: ASCORBIC ACID 500 MG TAB PO SCH (12:00)
[2020-04-23] MEDS ORDERED: CHOLECALCIFEROL (VIT D3) 5,000 UNIT TAB PO SCH (12:00)
[2020-04-23] MEDS ORDERED: ZINC SULFATE 220 MG CAP PO SCH (12:00)
[2020-04-23] MEDS: FAMOTIDINE 10 MG TAB PO SCH (12:07)
[2020-04-23] MEDS: HEPARIN 5,000 UNIT/1 ML VIAL SUB-Q SCH (12:07)
[2020-04-23] MEDS: BACITRACIN ZINC OINT 28.4 GM TP SCH (12:13)
--- NOTE | 2020-04-23 12:57 | Discharge Summary ---
Providers - Providers Date of Admission: 04/21/20 18:02 Date of discharge: 04/23/20 Attending physician: ADELIA VINCENT 04/22/20 16:47 Consult to Physician [CONS] Routine Comment: Consulting Provider: LA MARCOS Physician Instructions: Reason For Exam: COVID Primary care physician: [employer] Hospitalization Condition: Critical Hospital course: 41 years old female with history of morbid obesity, GERD, tobacco abuse, anxiety, admitted on 04/21/2020 secondary to a week history of generalized malaise, fatigue, dry cough, dyspnea on exertion and shortness of breath. Patient was evaluated as an outpatient and found to have bronchitis. Patient was treated with symptomatic medicines without any improvement. On arrival, temperature 99.7, HR 84, RR 24, O2 sat 96, BP 90/52. O2 sat dropped to 88% on exertion. Initial inflammatory markers are normal. Chest x-ray shows bilateral interstitial infiltrates. CTA of chest shows no pulmonary embolism, mild to moderate patchy bilateral opacities. Patient was tested for COVID-19 and that was positive. Patient currently saturating greater than 94% on room air. ID was consulted and recommended to treat with dexamethasone for 10 days. Patient is not a candidate for remdesivir or convalescent plasma. Patient was assessed oxygen saturation on ambulation and that was normal. Patient was then discharged home in stable condition with outpatient follow-up. Patient was told to keep her self quarantine for total 2 weeks. Discharge diagnosis: #COVID pneumonia: CTA shows bilateral infiltrates. Inflammatory markers overall normal. #Acute hypoxic upon ambulation: Likely secondary to COVID-19 pneumonia. Patient currently on room air. #Morbid obesity: Associated with poor outcomes with COVID-19. #GERD, continue PPI Disposition: TO HOME OR SELFCARE Time spent for discharge: 34 minutes Core Measure Documentation - Palliative Care Palliative Care/ Comfort Measures: Not Applicable - Core Measures Any of the following diagnoses?: none Exam - Physical Exam Narrative exam: GENERAL: well-developed and morbidly obese -[place] female lying on bed appeared to be in no discomfort. HEENT: Normocephalic. Atraumatic. No conjunctival congestion or icterus. Patient has moist mucous membranes. NECK: Supple. Trachea midline. CHEST/LUNGS: Diminished breath sound auscultated bilaterally, breathing nonlabored. No wheezes crackles or rhonchi. HEART/CARDIOVASCULAR: Regular in rate and rhythm. S1 and S2 positive. ABDOMEN: Abdomen is soft, nontender. Patient has normal bowel sounds. SKIN: There is no rash. Warm and dry. NEURO: No focal motor deficit. Follows command. MUSCULOSKELETAL: No joint effusion or tenderness. EXTRIMITY: No edema, no cyanosis or clubbing. PSYCH: Cooperative. - Constitutional Vitals: Temp Pulse Resp BP Pulse Ox 97.5 F L 74 18 136/83 94 04/23/20 12:25 04/23/20 12:25 04/23/20 12:25 04/23/20 12:25 04/23/20 12:25 Plan Activity: advance as tolerated Weight Bearing Status: Weight Bear as Tolerated Diet: low fat, low salt Follow up with: PRIMARY CAREMD [Primary Care Provider] - 7 Days LA MARCOS MD [Staff Physician] - 7 Days Prescriptions: dexAMETHasone [Decadron] 6 mg PO Q12HR #14 tablet Apixaban [Eliquis] 5 mg PO BID #20 tablet Famotidine [Pepcid] 10 mg PO BID #20 tablet Albuterol Mdi (or & Nicu Only) [ProAir HFA Inhaler] 2 puff IH QID PRN #8.5 gram PRN Reason: Shortness Of Breath Ascorbic Acid [Vitamin C] 1,000 mg PO BID #20 tablet Cholecalciferol (Vitamin D3) [Vitamin D3] 5,000 unit PO DAILY #14 tablet Zinc Sulfate 220 mg PO BID #20 capsule
[2020-04-23 17:12] VITALS: BP 114/73
[2020-04-28] MEDS ORDERED: DEXAMETHASONE 4 MG TAB PO SCH (10:00)
== END 2020-04-23 18:51 | disposition home or self-care (01) | DRG 871 ==
LOC: ED 14:08 → 3A 18:02
PROVIDERS: ADMIT Internal Medicine; ATTEND Internal Medicine
DX: A41.89 Other specified sepsis (principal); U07.1 COVID-19; J18.9 Pneumonia, unspecified organism; J96.01 Acute respiratory failure with hypoxia; E66.2 Morbid (severe) obesity with alveolar hypoventilation; Z68.43 Body mass index [BMI] 50.0-59.9, adult; K21.9 Gastro-esophageal reflux disease without esophagitis; F41.1 Generalized anxiety disorder; Z83.3 Family history of diabetes mellitus; Z82.49 Family history of ischemic heart disease and other diseases of the circulatory system; Z79.899 Other long term (current) drug therapy; Z98.51 Tubal ligation status
CPT/HCPCS: 36415; 71046; 71275; 80048; 80053; 81001; 82140; 82728; 82947; 83615; 83880; 84145; 84484; 84703; 85025; 85379; 86140; 87040; 87086; 93005; G0378; J0456; J0696; J1100; J1644; J2920; J7030; J7050; J8540; Q9967; U0003